=== PATIENT | female | born 1970 | race African-American/Black ===

== ENCOUNTER → 2019-01-04 | Outpatient (CLI) | payer BC ==
--- NOTE | 2019-01-04 17:00 | PCVCIMAG ---
APPROVED REPORT Study performed: 01/04/2019 16:06:42 Exam: Stress Echocardiogram Indication: Hypertension, Murmur Patient Location: Echo lab Stress Nurse: Namita Suarez RN Status: routine Ht: 4 ft 5 in HR: 85 bpm BP: 140/86 mmHg Rhythm: NSR Medical History Medical History: Murmur Procedure The patient underwent an Exercise Stress Test using the Fly Protocol. Blood pressure, heart rate, and EKG were monitored. An Echocardiogram was performed by traffic engineering technician in four stages in quad fashion. At peak stress, four selected images were obtained and placed side by side with resting images for comparison. Stress Test Details Stress Test: Exercise stress testing was performed using a Fly protocol. HR Resting HR: 85 bpmMax Heart Rate (APMHR): 173 bpm Max HR Achieved: 176 bpmTarget HR (85% APMHR): 147 bpm % of APMHR: 101 Recovery HR: 88 bpm HR response to stress: Normal HR response to stress BP Resting BP: 140/86 mmHg Max BP: 190/100 mmHg Recovery BP: 146/82 mmHg BP response to stress: Normal blood pressure response to stress. ECG Resting ECG: Sinus Rhythm Stress ECG: Sinus Rhythm Recovery ECG: Sinus Rhythm Clinical Reason for Termination: Maximal effort Exercise duration: 9 min sec Highest Stage Achieved: Stage 3: 3.4 mph at 14% grade. Exercise capacity: 10.10 METs Overall Exercise Capacity for Age: Normal Pre-Stress Echo The resting Echocardiogram showed normal left ventricular contractility with an estimated Ejection Fraction of about 55-60%. Normal wall motion in all segments on baseline images. Post-Stress Echo The stress Echocardiogram showed normal left ventricular contractility with an estimated Ejection Fraction of about 60-65%. Normal augmentation of wall motion in all segments on post stress images. Clinical No clinical or ECG evidence for ischemia. Conclusion Clinical Response: Non-ischemic Exercise Capacity: Average Stress ECG Response: Non-ischemic Stress Echo Images: Non-ischemic The left ventricle is normal in size and wall thickness in both the rest and stress images. Trace mitral regurgitation, Trace tricuspid regurgitation. Pulmonary artery pressure 30mmHg. Other Information Study Quality: Excellent <Conclusion> The left ventricle is normal in size and wall thickness in both the rest and stress images. Trace mitral regurgitation, Trace tricuspid regurgitation. Pulmonary artery pressure 30mmHg.
== END | disposition home or self-care (01) ==
LOC: PCVCIMAG 16:12
PROVIDERS: ATTEND Internal Medicine Cardiovascular Disease
DX: R01.1 Cardiac murmur, unspecified (principal); I10 Essential (primary) hypertension; E78.5 Hyperlipidemia, unspecified; Z86.79 Personal history of other diseases of the circulatory system; R94.31 Abnormal electrocardiogram [ECG] [EKG]
CPT/HCPCS: 93325; 93351